=== PATIENT | male | born 1995 | race African-American/Black ===

== ENCOUNTER 2020-10-09 11:47 | Emergency (ER) | payer SELFPAY ==
[2020-10-09 13:00] LABS: Bilirubin Negative (Negative); Blood, Urine Negative (Negative); Clarity Clear (Clear); Glucose, Urine (Dipstick) Normal (Negative); Ketone, Urine Negative (Negative); Leukocyte 250 Leu/uL (Negative); Nitrite Negative (Negative); Protein, Urine (Dipstick) 50 mg/dL (Neg-Trace); RBC/HPF 0-3 HPF (0-3); Specific Gravity, Urine 1.033 (1.002-1.036); Squamous Epithelial None Seen HPF (0-3); WBC/HPF Greater than 50 HPF (0-3)
[2020-10-09 13:01] LABS: Sperm/HPF None Seen HPF (None Seen)
[2020-10-09 13:09] LABS: Bacteria/HPF 1+ HPF (None Seen)
[2020-10-09] MEDS ORDERED: Sterile Water 10 ML ONE (13:19)
[2020-10-09] MEDS ORDERED: cefTRIAXone\\ROCEPHIN 500 MG VIAL ONE (13:19)
[2020-10-09] MEDS ORDERED: Ondansetron ODT 8 MG TAB ONE (13:24)
[2020-10-09] MEDS ORDERED: metroNIDAZOLE 250 MG TAB ONE ×2 (13:24→13:33)
[2020-10-12 21:53] LABS: Chlam.trachomatis by PCR,Urine DETECTED (NotDetected)
== END 2020-10-09 13:45 | disposition home or self-care (01) ==
LOC: ERS 11:47
DX: R36.9 Urethral discharge, unspecified (principal); Z20.2 Contact with and (suspected) exposure to infections with a predominantly sexual mode of transmission; F17.290 Nicotine dependence, other tobacco product, uncomplicated
CPT/HCPCS: 81003; 81015; 87491; 87591; 96372; 99284; J0696; Q0162

== ENCOUNTER 2022-11-29 17:14 | Emergency (ER) | payer SELFPAY ==
[2022-11-29] MEDS ORDERED: cefTRIAXone (ROCEPHIN) 500 MG VIAL ONE (19:31)
[2022-11-29] MEDS ORDERED: Azithromycin 250 MG TAB ONE ×2 (19:31→19:35)
[2022-11-29] MEDS ORDERED: Sterile Water 10 ML ONE (19:32)
[2022-11-29] MEDS ORDERED: metroNIDAZOLE 500 MG TAB PO SCH (19:45)
[2022-11-30 21:15] LABS: Chlam.trachomatis by PCR,Urine Not Detected (NotDetected); GC N.gonorrhoeae PCR,UrineVOID DETECTED (NotDetected)
== END 2022-11-29 19:58 | disposition home or self-care (01) ==
LOC: ERS 17:14
DX: R36.0 Urethral discharge without blood (principal)
CPT/HCPCS: 87491; 87591; 87661; 96372; 99283; J0696

== ENCOUNTER 2023-02-16 13:06 | Emergency (ER) | payer SELFPAY ==
[2023-02-16 13:41] LABS: Bacteria/HPF None Seen HPF (None Seen); Bilirubin Negative (Negative); Blood, Urine Negative (Negative); CAUTI Indications for Culture Dysuria,urgency,freq; Clarity Clear (Clear); Glucose, Urine (Dipstick) Normal (Negative); Ketone, Urine Negative (Negative); Leukocyte 500 Leu/uL (Negative); Nitrite Negative (Negative); Protein, Urine (Dipstick) Negative (Neg-Trace); RBC/HPF 0-3 HPF (0-3); Specific Gravity, Urine 1.013 (1.002-1.036); Squamous Epithelial 0-3 HPF (0-3); Urobilinogen Normal mg/dL (Less than 2); WBC/HPF Greater than 50 HPF (0-3)
[2023-02-16 13:44] LABS: Urine Culture Reflex Yes Yes
[2023-02-16] MEDS ORDERED: Lidocaine 1% PF 5 ML VIAL ONE (14:11)
[2023-02-16] MEDS ORDERED: cefTRIAXone (ROCEPHIN) 500 MG VIAL ONE (14:11)
[2023-02-16 18:05] LABS: Chlam.trachomatis by PCR,Urine DETECTED (NotDetected); GC N.gonorrhoeae PCR,UrineVOID DETECTED (NotDetected)
== END 2023-02-16 14:38 | disposition home or self-care (01) ==
LOC: ERS 13:06
DX: Z20.2 Contact with and (suspected) exposure to infections with a predominantly sexual mode of transmission (principal)
CPT/HCPCS: 81001; 87086; 87491; 87591; 96372; 99283; J0696